=== PATIENT | male | born 1980 | race Caucasian/White ===

== ENCOUNTER 2023-07-16 13:28 | Inpatient (IN) | payer BC, SELFPAY ==
[2023-07-16 08:11] VITALS: BP 116/84
[2023-07-16 08:37] VITALS: BMI 21.8
--- NOTE | 2023-07-16 08:41 | ED.GENMED ---
History of Present Illness
General
Chief Complaint: Abdominal Pain
Source: patient
Exam Limitations: none
Time Seen by Provider: 07/16/23 08:20
Nursing documentation reviewed up to this point in time: agreed with
Travel History
Have you had any contact with someone who has COVID-19?: No
Do you have any symptoms of coronavirus? Fever > 100 degrees, chills, cough, shortness of breath, sore throat, loss of taste or smell, muscle aches, or headache?: No
History of Present Illness
History of Present Illness:
43-year-old male with no medical problems presents with cramps in his lower abdomen starting 2 and half days ago after eating pizza. Patient thought maybe he had just eaten too much. Yesterday the pain continued and kind of localized to the left
lower quadrant. Last evening he developed a temperature of 100.0 and chills and sweats. Patient did not take anything for his fever. He did not sleep well last night because of pain. He felt like he could only lay on his right side because it
would help alleviate some of the pain. He did not try anything for pain. The pain is worse with walking, movement, bumps in the car. He is having some referred pain to his left lower back and into his scrotum but no testicular tenderness. He has
never had a kidney stone or diverticulitis. He has never had a colonoscopy. His last bowel movement was yesterday and was normal without any blood or black stool, no diarrhea. He has had a little bit of nausea, lack of appetite but no vomiting
Past History
Past History
ED Past Medical History: None
ED Past Surgical History: Other (Eye surgery as a child due to trauma)
Social History
Tobacco: Non-smoker
Alcohol: None
Drug: None
Personal:
Living: with family
Employment: Employed
Review of Systems
Review of Systems
Allergies reviewed?: Yes
All Other Systems: Not applicable
Phy Exam
Physical Exam
Physical Exam:
GENERAL: Alert , in no apparent distress
EYE: pupils equal and reactive
NECK: Supple
ENT: o/p clr, mmm.
CARDIAC: Regular rate and rhythm .
LUNGS: Clear breath sounds bilaterally, no acute respiratory distress, no wheezes/rales/rhonchi
ABDOMEN: Soft, moderate lower abdominal tenderness suprapubic and left lower quadrant with subtle rebound and voluntary guarding, no cvat, normal bowel sounds
NEUROLOGICAL: Alert and oriented, no focal neuro deficits
SKIN: Warm and dry, skin intact.
MUSCULOSKELETAL: No edema, well perfused.
PSYCH: Normal and appropriate interaction.
Course
Orders/Labs/Results
Orders:
Orders
07/16/23 08:33
Iohexol [Omnipaque] 50 ml .ROUTE .STK-MED ONE
07/16/23 08:34
0.9% Sodium Chloride 1000 ml [Nss] 1,000 ml IV BOLUS
07/16/23 08:37
Ketorolac [Toradol] 15 mg IV NOW STA
07/16/23 08:38
CT Abd/pel W Iv And Oral Contr Urgent
Comment:
Reason For Exam: llq pain fevre guarding;
Iohexol [Omnipaque] See Protocol PO NOW STA
Ondansetron Injectable [Zofran] 4 mg .ROUTE .STK-MED ONE
Ondansetron Injectable [Zofran] 4 mg IV NOW STA
07/16/23 08:54
Complete Blood Count/No Diff Urgent
Comprehensive Metabolic Panel Urgent
Lactic Acid Urgent
Lipase Urgent
07/16/23 10:32
Urinalysis Reflex To Culture Urgent
Date Specimen was Collected: 07/16/23
Time Specimen was Collected: 10:23
Urine Microscopic Reflex Cult Urgent
07/16/23 12:02
HYDROmorphone [Dilaudid] 1 mg IV NOW STA
07/16/23 12:03
0.9% Sodium Chloride 1000 ml [Nss] 1,000 ml IV BOLUS
07/16/23 12:22
Piperacillin/Tazo 3.375 Gram [Zosyn] 3.375 gram in 50 ml IV NOW
07/16/23 13:00
Admit/Transfer Patient As Directed
Co-Sign Provider:
Level of Care: Inpatient admission
Assign to:: Medical/Surgical
Physician / Group: Jenny
Diagnosis: acute diverticulitis
Reason for Hospitalization: acute diverticulitis
Expected length of stay greater than two midnights?: Yes
ELOS- Estimated Length of Stay in days: 3
I certify the patient meets the requirements for IP care: Yes
Code Status As Directed
Resuscitation Status: Full Code
07/16/23 13:51
0.9% Sodium Chloride 1000 ml [Nss] 1,000 ml IV 125 mls/hr
Acetaminophen [Tylenol] 650 mg PO Q4HPRN PRN
HYDROmorphone [Dilaudid] 1 mg IV Q3HPRN PRN
Ondansetron Injectable [Zofran] 4 mg IV Q6HPRN PRN
07/16/23 13:51
ColoRectal Surgery Consult Routine
Consulting Provider: Darell Kat
Was physician already notified: Yes
Reason for consult: acute diverticulitis
Activity As Directed
Activity Level: With Assistance
Vital Signs As Directed
Frequency: Per unit guidelines
DX Deep Vein Thrombosis Video Routine
07/16/23 Dinner
NPO
Allow oral meds: Yes
Allow clear liquids: Sips of Clears
07/16/23 18:00
Enoxaparin Sodium [Lovenox] 40 mg SC QPM
Piperacillin/Tazo 3.375 Gram [Zosyn] 3.375 gram in 50 ml IV Q6H
07/17/23 06:00
Basic Metabolic Panel IN AM
Complete Blood Count/With Diff IN AM
07/18/23 06:00
Basic Metabolic Panel IN AM
Complete Blood Count/With Diff IN AM
07/19/23 06:00
Basic Metabolic Panel IN AM
Complete Blood Count/With Diff IN AM
07/20/23 06:00
Basic Metabolic Panel IN AM
Complete Blood Count/With Diff IN AM
07/21/23 06:00
Basic Metabolic Panel IN AM
Complete Blood Count/With Diff IN AM
Abnormal Lab Results
07/16/23 07/16/23
08:54 10:32
WBC 15.4 H 10^3/uL
(4.8-10.8)
RBC 4.46 L 10^6/uL
(4.70-6.10)
MCH 31.6 H pg
(27.0-31.0)
MPV 12.1 H fL
(7.4-10.4)
Total Bilirubin 1.5 H mg/dl
(0.2-1.3)
Ur Occult Blood Reflex 1+ A
(Negative)
Urine RBC 3-6 A /HPF
(0-2)
07/16/23 08:54
07/16/23 08:54
Vital Signs
Initial and Last Documented VS:
Initial Vital Signs
Temp Pulse Resp BP Pulse Ox
98.7 F 73 16 116/84 98
07/16/23 08:11 07/16/23 08:11 07/16/23 08:11 07/16/23 08:11 07/16/23 08:11
Last Documented Vital Signs
Temp Pulse Resp BP Pulse Ox
98.2 F 80 18 109/65 96
07/16/23 14:14 07/16/23 14:14 07/16/23 14:14 07/16/23 14:14 07/16/23 14:14
MDM/Problems Addressed
Differential Diagnosis Includes:
diverticulitis, peforation, uti
MDM/Problems Addressed:
43 y/o M with no pmh here with 3 days llq pain, fever 100, wbc 15, tender wiht mild rebound; lactate normal ct shows LLQ divertic with possible microperf; texted dr. eric arora; getting zosyn'; admit hospitalist
*Critical Care Note
Total Time (30-74mins, 75-104mins- exclusive of procedures): Not Applicable
ED Attending Note
-
Portions of this chart may have been created with voice recognition software.� Occasional wrong word or��sound alike� substitutions may have occurred due to the inherent limitations of voice recognition software.
Discharge Plan
Departure
Patient Disposition: Admit
Date of Disposition: 07/16/23
Time of Disposition: 12:36
Admit to: Med/Surg
Presentation/result/management discussed w/ accepting MD/DO: Hospitalist
Patient with high blood pressure during this ER visit?: No
Condition: Fair
Covid-19: Not Applicable
Discharge Problem:
Diverticulitis, microperfor
Interventions
Interventions:
*Risk Screen - Suicide Last Done: 07/16/23 14:00
*General Assessment Last Done: 07/16/23 08:11
*Neglect/Abuse Screening Last Done: 07/16/23 08:11
ED- Fall Risk Assessment Last Done: 07/16/23 09:19
*ED COVID-19 Vaccine History Last Done: 07/16/23 09:19
*Nursing Disposition Last Done: 07/16/23 13:54
NW-Spuynp-Obfjrketjs Assessment Last Done: 07/16/23 09:19
Discharge Date and Time
Discharge Date/Time: 07/16/23 13:55
[2023-07-16] MEDS: TORADOL 15 MG IV (08:47)
[2023-07-16] MEDS: OMNIPAQUE 50 ML PO (08:52)
[2023-07-16] MEDS: NSS 1000 IV ×4 (08:52→23:05)
[2023-07-16] MEDS: ZOFRAN 4 MG IV (08:52)
[2023-07-16 09:10] LABS: Hematocrit 40.5 % (39.0-52.0); Hemoglobin 14.1 g/dL (13.0-18.0); Mean Corp Hgb Conc. 34.8 g/dL (33.0-37.0); Mean Corpuscular Hgb 31.6 pg (27.0-31.0); Mean Corpuscular Volume 90.8 fL (80.0-94.0); Mean Platelet Volume 12.1 fL (7.4-10.4); Platelet Count 208 10^3/uL (130-400); Red Blood Cell Count 4.46 10^6/uL (4.70-6.10); Red Cell Dist. Width 11.7 % (11.5-14.5); White Blood Cell Count 15.4 10^3/uL (4.8-10.8)
[2023-07-16 09:17] LABS: ALT (SGPT) 14 U/L (0-50); AST (SGOT) 27 U/L (17-59); Albumin 4.6 g/dl (3.5-5.0); Alkaline Phosphatase 60 U/L (38-126); Blood Urea Nitrogen 13 mg/dl (9-20); Calcium 9.6 mg/dl (8.4-10.2); Carbon Dioxide 28 mmol/L (22-30); Chloride 101 mmol/L (98-107); Estimated Creatinine Clearance 113 ml/min; Glucose 94 mg/dl (70-99); Lipase 63 U/L (23-300); Potassium 3.8 mmol/L (3.5-5.1); Sodium 136 mmol/L (135-145); Total Bilirubin 1.5 mg/dl (0.2-1.3); Total Protein 7.3 g/dl (6.3-8.2); eGFR > 60.00
[2023-07-16 09:20] LABS: Lactic Acid 0.8 mmol/L (0.7-2.0)
[2023-07-16 10:39] LABS: Urine Albumin Negative (Neg - Trace); Urine Bilirubin Negative (Negative); Urine Character Clear (Clear); Urine Color Yellow; Urine Glucose Negative (Negative); Urine Ketone Negative (Negative); Urine Leukocyte Negative (Negative); Urine Nitrite Negative (Negative); Urine Occult Blood 1+ (Negative); Urine Urobilinogen Negative (Neg - 1+); Urine pH 6.5 (5.0-9.0)
[2023-07-16 10:42] VITALS: BP 111/69
[2023-07-16 11:23] LABS: Urine Amorphous Seen; Urine Mucus Many; Urine Squamous Cell 0-2 /LPF (Few)
[2023-07-16 11:24] LABS: Urine White Cell 0-2 /HPF (0-5)
[2023-07-16] MEDS: DILAUDID 1 MG IV ×2 (12:07→19:51)
[2023-07-16] MEDS: ZOSYN 50 IV ×3 (12:27→23:06)
--- NOTE | 2023-07-16 12:29 | HPS.HSE ---
Family Physician
-
Family Physician: Jasbir Washburn
Chief Complaint
-
Abdominal pain and fever
History of Present Illness
43-year-old male with no past medical history presents with chief complaint of abdominal pain and fever. Patient reports his abdominal pain was in the left lower quadrant started 2 days ago. Yesterday evening the patient began to have fever. He
also had chills. He denies any vomiting or diarrhea. He denies any other acute symptoms other than some low back pain he noted 4 days ago but he attributes this to lifting weights. Denies chest pain, shortness of breath, headache, visual
disturbances, neck stiffness, rash, dysuria.
Medical History
Past Medical History
Past Medical History: Reports None
Past Surgical History: Reports Other (N/A)
Social History
Tobacco: Non-smoker
Alcohol: None
Drug: None
Family History
Family History: Not pertinent
Allergies / Home Medications
Allergies reflects when Allergies were last updated in [employer].
Home Medications with original date entered in [facility] [facility]
Allergy/Medication List:
Allergies
Allergy/AdvReac Type Severity Reaction Status Date / Time
No Known Allergies Allergy Verified 07/16/23 08:10
Home Medications
NONE
Review of Systems
-
History Source: Patient
A 12 point ROS was completed and negative except as noted: Yes
Physical Exam
Vital Signs
Vital Signs
Temp Pulse Resp BP Pulse Ox
98.7 F 72 16 111/69 98
07/16/23 08:11 07/16/23 10:42 07/16/23 10:42 07/16/23 10:42 07/16/23 10:42
Physical Exam
General: Other (.)
Laboratory Results
-
07/16/23 08:54
07/16/23 08:54
Laboratory Results
Lactic Acid 0.8 mmol/L (0.7-2.0) 07/16/23 08:54
Total Bilirubin 1.5 mg/dl (0.2-1.3) H 07/16/23 08:54
AST 27 U/L (17-59) 07/16/23 08:54
ALT 14 U/L (0-50) 07/16/23 08:54
Alkaline Phosphatase 60 U/L (38-126) 07/16/23 08:54
Lipase 63 U/L (23-300) 07/16/23 08:54
Impression/Plan
-
Gen: NAD, AAOx3.
Eyes: EOMI, PERRLA, no scleral icterus.
Neck: supple.
CV: RRR, +S1/S2, no m/r/g.
Resp: CTAB, no rales, wheezes, or rhonchi.
Abd: +BS, soft, LLQ TTP, ND
Skin: No rashes.
Neuro: CN 2-12 intact, non-focal.
Psych: Normal mood and affect.
CT A/P: Diverticulosis of the descending and sigmoid colon with short segment thickening of the wall at the junction of the distal descending and proximal sigmoid colon with accompanying stranding compatible with DIVERTICULITIS. Tiny adjacent bubble
of air which could represent contained perforation. No free peritoneal air, intestinal obstruction or abnormal focal fluid collection. Predominantly stable scattered small/subcentimeter mesenteric lymph nodes.
Acute distal descending and proximal sigmoid diverticulitis with possible contained perforation:
-surgery following
-cont IV Zosyn
-NPO/IVFs/pain control
-serial abdominal exams
-trend leukocytosis
FULL/Lovenox
[2023-07-16 12:37] VITALS: BP 118/73
--- NOTE | 2023-07-16 13:30 | CON.CRS ---
Consultation
-
Date/Time Consultation Requested: 07/16/2023, 1230
Date/Time Consultation Performed: 07/16/2023, 1400
Requesting Provider: Minnie Farias PA-C
Performing Provider: Serjio Kat MD
Reason for Consultation: Diverticulitis
Medical History
-
Chief Complaint: Abdominal pain
History of Present Illness:
43-year-old male with no past medical history presents the emergency department due to abdominal cramping for the past 2 days. Yesterday the pain continued to the left lower quadrant. He developed a temperature of 100.0 with associated chills and
sweats. He was unable to sleep last night because the pain. He has had some nausea and lack of appetite. His last bowel movement was yesterday and normal. He has not had a prior attack of diverticulitis. He has never had a colonoscopy (he has
one scheduled with our GI group in early August).
In the ER his WBC is 15.4. He is afebrile and his vital signs are normal. CT of the abdomen pelvis shows Diverticulosis of the descending and sigmoid colon with short segment thickening of the wall at the junction of the distal descending and
proximal sigmoid colon with accompanying stranding compatible with diverticulitis. Tiny adjacent bubble of air which could represent contained perforation. No free peritoneal air, intestinal obstruction or abnormal focal fluid collection. We have
been consulted for further surgical opinion.
Past Medical History
Past Medical History: None
Past Surgical History: Other (Ophthalmologic surgery)
Social History
Tobacco: Non-Smoker
Alcohol: None
Drug: None
Personal:
Employment: Employed
Family History
Family History: Reviewed & Not Pertinent
Allergies / Home Medications
Allergy/AdvReac Type Severity Reaction Status Date / Time
No Known Allergies Allergy Verified 07/16/23 08:10
Medication Instructions Recorded Confirmed Type
oxycodone-acetaminophen 5 mg-325 1 tab PO Q4HPRN PRN severe pain 01/11/15 Rx
mg tablet #15 tabs
Review of Systems
-
History Source: Patient
All other systems: Negative unless noted
Abdomen/GI: Abdominal Pain, Nausea and Anorexia
A 10 point review of systems was completed, and was negative except as per HPI.
Physical Exam
Vital Signs
Temp 98.7 F 07/16/23 08:11
Pulse 80 07/16/23 12:37
Resp Rate 16 07/16/23 12:37
Blood pressure 118/73 07/16/23 12:37
SaO2 97 07/16/23 12:37
07/15/23 07/16/23 07/17/23
06:59 06:59 06:59
Actual Weight 77.1 kg
Body Mass Index (BMI) 21.8
Lab Results / Allergies
07/16/23 08:54
07/16/23 08:54
WBC 15.4 10^3/uL (4.8-10.8) H 07/16/23 08:54
Hgb 14.1 g/dL (13.0-18.0) 07/16/23 08:54
Hct 40.5 % (39.0-52.0) 07/16/23 08:54
Plt Count 208 10^3/uL (130-400) 07/16/23 08:54
Allergy/AdvReac Type Severity Reaction Status Date / Time
No Known Allergies Allergy Verified 07/16/23 08:10
Physical Exam
General: Well Developed, Well Nourished and No Apparent Distress
GI: Soft, Non Distended and Tender (Left lower quadrant)
Skin: Warm and Dry
Neuro: AO x 3
Psych: Calm
Data Reviewed
-
CT Scan: Image Personally Visualized and interpreted, Report Reviewed by me and Discussed with Patient
Labs: Labs Reviewed by me, Discussed with Physician and Discussed with Patient
Old Records: Reviewed
Assessment / Plan
-
Assessment: 43-year-old male with no past medical history presents with fever at home and left lower quadrant abdominal pain by 2 days, CT consistent with uncomplicated distal descending and proximal sigmoid colon diverticulitis
Plan: There is no indication for urgent surgery at this time. Recommend n.p.o. today. Continue IV antibiotics and fluids. Continue to trend labs and vital signs. If he worsens he will require a colectomy with possible colostomy creation. Will
need eventual colonoscopy as an outpatient. Discussed the above with the patient. Will follow.
[2023-07-16 14:14] VITALS: BP 109/65
[2023-07-16 14:15] VITALS: BMI 22.1
[2023-07-16] MEDS: TYLENOL 650 MG PO (15:00)
[2023-07-16] MEDS: FLUSH (NSS) 1 FLUSH IV (19:52)
[2023-07-16 23:30] VITALS: BP 103/50
[2023-07-17] MEDS: TYLENOL 650 MG PO (01:44)
[2023-07-17] MEDS: ZOSYN 50 IV ×4 (05:28→23:23)
[2023-07-17 06:18] LABS: % Basophils 0.3 % (0-2); % Immature Granulocytes 0.3 % (0-0.5); % Monocytes 9.7 % (1.7-9.3); % Neutrophils 72.7 % (42.2-75.2); Absolute Eosinophils 0.1 10^3/uL (0-0.7); Absolute Lymphocytes 2.2 10^3/uL (1.2-3.4); Absolute Monocytes 1.3 10^3/uL (0.1-0.6); Absolute Neutrophils 9.8 10^3/uL (1.4-6.5); Hematocrit 35.5 % (39.0-52.0); Hemoglobin 12.2 g/dL (13.0-18.0); Mean Corp Hgb Conc. 34.4 g/dL (33.0-37.0); Mean Corpuscular Hgb 31.5 pg (27.0-31.0); Mean Corpuscular Volume 91.7 fL (80.0-94.0); Mean Platelet Volume 12.2 fL (7.4-10.4); Nucleated Red Blood Cells % 0 % (-); Platelet Count 176 10^3/uL (130-400); Red Blood Cell Count 3.87 10^6/uL (4.70-6.10); Red Cell Dist. Width 11.7 % (11.5-14.5); White Blood Cell Count 13.5 10^3/uL (4.8-10.8)
[2023-07-17] MEDS: NSS 1000 IV ×3 (06:44→23:23)
[2023-07-17 06:51] LABS: Blood Urea Nitrogen 9 mg/dl (9-20); Calcium 8.8 mg/dl (8.4-10.2); Carbon Dioxide 25 mmol/L (22-30); Chloride 105 mmol/L (98-107); Estimated Creatinine Clearance > 125 ml/min; Glucose 80 mg/dl (70-99); Potassium 3.9 mmol/L (3.5-5.1); Sodium 138 mmol/L (135-145); eGFR > 60.00
[2023-07-17 07:00] VITALS: BP 122/98
[2023-07-17] MEDS: DILAUDID 1 MG IV ×3 (10:02→20:41)
--- NOTE | 2023-07-17 10:16 | W.PN.HOSP.TC ---
Today's Communication/Plan
-
see bold
Assessment / Plan
Assessment / Plan
Gen: NAD, AAOx3.
Eyes: EOMI, PERRLA, no scleral icterus.
Neck: supple.
CV: remains RRR, +S1/S2, no m/r/g.
Resp: remains CTAB, no rales, wheezes, or rhonchi.
Abd: remains +BS, soft, LLQ TTP, ND
Skin: No rashes.
Neuro: CN 2-12 intact, non-focal.
Psych: Normal mood and affect.
CT A/P: Diverticulosis of the descending and sigmoid colon with short segment thickening of the wall at the junction of the�distal descending and proximal sigmoid colon�with accompanying stranding compatible with�DIVERTICULITIS. Tiny adjacent bubble
of air which could represent contained perforation.�No free peritoneal air, intestinal obstruction or abnormal focal fluid collection. Predominantly stable scattered small/subcentimeter mesenteric lymph nodes.
Acute distal descending and proximal sigmoid diverticulitis with possible contained perforation:
-surgery following
-cont IV Zosyn
-NPO/IVFs/pain control
-serial abdominal exams
-Leukocytosis improving
-if abd pain has not improved by tomorrow will repeat CT A/P
FULL/Lovenox
Anticipated Discharge: > 48 hours
Subjective/Interval History
-
Date of Service: July 17, 2023
LLQ abdominal pain has not improved.
Objective Data
-
Labs:
Laboratory Results
07/17/23
05:29
WBC 13.5 H
Hgb 12.2 L
Hct 35.5 L
Plt Count 176
Sodium 138
Potassium 3.9
Chloride 105
Carbon Dioxide 25
BUN 9
Creatinine 0.8
Glucose 80
Calcium 8.8
Vital Signs:
Vital Signs
Temp Pulse Resp BP Pulse Ox
98.1 F 79 16 122/98 99
07/17/23 07:00 07/17/23 07:00 07/17/23 07:00 07/17/23 07:00 07/17/23 07:00
I&O
07/16/23 07/17/23 07/18/23
06:59 06:59 06:59
Intake Total 1475 / 1475
Balance 1475 / 1475
--- NOTE | 2023-07-17 11:43 | W.PN.GS2 ---
Addendum entered and electronically signed by Kendall Watson MD 07/17/23 12:00:
I saw and examined the patient.
The Grocery Caddy's note was reviewed and I agree with the note.
Comment: Improving. Still with mod-sev ttp to LLQ. Would remain on CLD today and cont IV abx. Trend WBC/fever.
Original Note:
Today's Communication / Plan
-
Follow on IV ABX/CLD
Assessment / Plan
-
43 yo male presenting with fevers and distal descending and proximal sigmoid diverticulitis without abscess.
Febrile overnight, VSS
WBC trending down
--There is no indication for urgent surgery at this time
--Continue clears, but hold diet advancement until pain improved
--Continue IVF/IV ABX
--Tylenol, Toradol, Dilaudid for pain
--Continue to trend labs, exams and vital signs.� If he worsens he will require a colectomy with possible colostomy creation.�
--Will need eventual colonoscopy as an outpatient.��
Subjective Data
-
Date of Service: July 17, 2023
patient seen and examined at bedside with Dr. Watson. Denies n/v. LLQ pain persists. Uncomfortable appearing.
Objective Data
-
Intake and Output
07/16/23 07/17/23 07/18/23
06:59 06:59 06:59
Intake Total 1475 / 1475
Balance 1475 / 1475
Intake:
IV fluids (Total) 1375 / 1375
IV piggybacks 100 / 100
Other:
Number of approximated LARGE 3
amounts of urine
Vital Signs
Temp Pulse Resp BP Pulse Ox
97.6 F 79 16 122/98 99
07/17/23 11:11 07/17/23 07:00 07/17/23 07:00 07/17/23 07:00 07/17/23 07:00
Lab Results
07/17/23 05:29
07/17/23 05:29
Calcium 8.8 mg/dl (8.4-10.2) 07/17/23 05:29
Total Bilirubin 1.5 mg/dl (0.2-1.3) H 07/16/23 08:54
AST 27 U/L (17-59) 07/16/23 08:54
ALT 14 U/L (0-50) 07/16/23 08:54
Alkaline Phosphatase 60 U/L (38-126) 07/16/23 08:54
Total Protein 7.3 g/dl (6.3-8.2) 07/16/23 08:54
Albumin 4.6 g/dl (3.5-5.0) 07/16/23 08:54
Physical Exam
-
NAD, Ox3
ABD soft, LLQ exquisitely tender, some referred pain to the left with palpation on the right, ND
--- NOTE | 2023-07-17 12:14 | CM ---
IA completed with pt at bedside.
Pt is a 43yr old male admitted for acute diverticulitis
Pt lives in a private multi level home with his and daughter.
Pt is indep at baseline, working.
No DME/VN/SNF
PCP; Jasbir Washburn
Pharm; [facility] [address]
No needs anticipated
[2023-07-17] MEDS: TORADOL 10 MG IV (13:32)
[2023-07-17 15:59] VITALS: BP 122/74
[2023-07-17 23:33] VITALS: BP 131/63
[2023-07-18] MEDS: ZOSYN 50 IV ×2 (05:00→11:33)
[2023-07-18] MEDS: DILAUDID 1 MG IV (05:06)
[2023-07-18 06:44] LABS: % Basophils 0.4 % (0-2); % Eosinophils 3.7 % (0-6); % Immature Granulocytes 0.3 % (0-0.5); % Lymphocytes 20.1 % (20.5-51.1); % Monocytes 10.1 % (1.7-9.3); % Neutrophils 65.4 % (42.2-75.2); Absolute Eosinophils 0.3 10^3/uL (0-0.7); Absolute Lymphocytes 1.6 10^3/uL (1.2-3.4); Absolute Monocytes 0.8 10^3/uL (0.1-0.6); Absolute Neutrophils 5.2 10^3/uL (1.4-6.5); Hematocrit 31.8 % (39.0-52.0); Hemoglobin 11.1 g/dL (13.0-18.0); Mean Corp Hgb Conc. 34.9 g/dL (33.0-37.0); Mean Corpuscular Hgb 31.8 pg (27.0-31.0); Mean Corpuscular Volume 91.1 fL (80.0-94.0); Mean Platelet Volume 11.6 fL (7.4-10.4); Nucleated Red Blood Cells % 0 % (-); Platelet Count 168 10^3/uL (130-400); Red Blood Cell Count 3.49 10^6/uL (4.70-6.10); Red Cell Dist. Width 11.7 % (11.5-14.5); White Blood Cell Count 7.9 10^3/uL (4.8-10.8)
[2023-07-18 07:01] LABS: Blood Urea Nitrogen 6 mg/dl (9-20); Calcium 8.8 mg/dl (8.4-10.2); Carbon Dioxide 27 mmol/L (22-30); Chloride 104 mmol/L (98-107); Estimated Creatinine Clearance 115 ml/min; Glucose 89 mg/dl (70-99); Potassium 3.9 mmol/L (3.5-5.1); Sodium 138 mmol/L (135-145); eGFR > 60.00
[2023-07-18 07:47] VITALS: BP 116/72
[2023-07-18] MEDS: NSS 1000 IV (08:37)
--- NOTE | 2023-07-18 10:17 | W.PN.HOSP.TC ---
Today's Communication/Plan
-
see bold
Assessment / Plan
Assessment / Plan
Gen: NAD, AAOx3.
Eyes: EOMI, PERRLA, no scleral icterus.
Neck: supple.
CV: remains RRR, +S1/S2, no m/r/g.
Resp: remains CTAB, no rales, wheezes, or rhonchi.
Abd: remains +BS, soft, LLQ TTP, ND
Skin: No rashes.
Neuro: CN 2-12 intact, non-focal.
Psych: Normal mood and affect.
CT A/P: Diverticulosis of the descending and sigmoid colon with short segment thickening of the wall at the junction of the�distal descending and proximal sigmoid colon�with accompanying stranding compatible with�DIVERTICULITIS. Tiny adjacent bubble
of air which could represent contained perforation.�No free peritoneal air, intestinal obstruction or abnormal focal fluid collection. Predominantly stable scattered small/subcentimeter mesenteric lymph nodes.
Acute distal descending and proximal sigmoid diverticulitis with possible contained perforation:
-surgery following
-cont IV Zosyn
-Leukocytosis resolved
-case discussed with Dr. Watson. Advanced to low residue diet. If he tolerates a low residue diet for lunch he can be discharged on Augmentin. With family present I specifically explained that should he have worsening abdominal pain, fever, or any
other concerning symptoms he needs to come back to the ER immediately. He verbally acknowledged understanding of this.
FULL/Lovenox
Total time spent on d/c = 33 min. This included today's physical exam, progress note, review of laboratory and diagnostic data, preparation of discharge documents and prescriptions, and discussions about the pt's hospital course and discharge plan
with the patient and other certified medical coder involved in the patient's care.
Anticipated Discharge: Today
Subjective/Interval History
-
Date of Service: July 18, 2023
Patient reports abdominal pain is overall improving.
Objective Data
-
Labs:
Laboratory Results
07/18/23
06:17
WBC 7.9
Hgb 11.1 L
Hct 31.8 L
Plt Count 168
Sodium 138
Potassium 3.9
Chloride 104
Carbon Dioxide 27
BUN 6 L
Creatinine 0.9
Glucose 89
Calcium 8.8
Vital Signs:
Vital Signs
Temp Pulse Resp BP Pulse Ox
98.4 F 57 16 116/72 97
07/18/23 07:47 07/18/23 07:47 07/18/23 07:47 07/18/23 07:47 07/18/23 07:47
I&O
07/17/23 07/18/23 07/19/23
06:59 06:59 06:59
Intake Total 1475 / 1475 880 / 880
Balance 1475 / 1475 880 / 880
--- NOTE | 2023-07-18 11:16 | W.PN.GS2 ---
Addendum entered and electronically signed by Kendall Watson MD 07/18/23 12:22:
I saw and examined the patient.
The Remote Sensing Scientist's note was reviewed and I agree with the note.
Comment: C/o pain that has not improved. No further fevers, WBC normalized. Discussed staying an additional 24 hrs for IV abx, pt prefers DC home with PO abx. Advised of the risks of recurrent flare and provided guidance regarding what to watch for
at home that should prompt return to the hospital (worsening pain/vomiting/fever). F/U with CRS outpt to discuss options/future mgmt. He has a c-scope scheduled already (age 43 screening scope)
Original Note:
Today's Communication / Plan
-
Advance diet
Continue abx
Assessment / Plan
-
43 yo male presenting with fevers and distal descending and proximal sigmoid diverticulitis without abscess.
No further fevers, VSS
Leukocytosis resolved
--There is no indication for urgent surgery at this time
--Advanced to LRD
--Continue IVF/IV ABX
--Tylenol, Toradol, Dilaudid for pain
--Will need eventual colonoscopy as an outpatient
Patient eager for discharge, ideally would continue IV abx until pain more improved. Will follow pain pattern with diet advancement. Tentatively ready for d/c this evening vs tomorrow.
Subjective Data
-
Date of Service: July 18, 2023
Patient seen and examined at bedside with Dr. Watson. Denies n/v. Tolerating clears. Pain present but improving slowly.
Objective Data
-
Intake and Output
07/17/23 07/18/23 07/19/23
06:59 06:59 06:59
Intake Total 1475 / 1475 880 / 880
Balance 1475 / 1475 880 / 880
Intake:
Oral fluids 880 / 880
IV fluids (Total) 1375 / 1375
IV piggybacks 100 / 100
Other:
Number of approximated MODERATE 3
amounts of urine
Number of approximated LARGE 3
amounts of urine
Vital Signs
Temp Pulse Resp BP Pulse Ox
98.4 F 57 16 116/72 97
07/18/23 07:47 07/18/23 07:47 07/18/23 07:47 07/18/23 07:47 07/18/23 07:47
Lab Results
07/18/23 06:17
07/18/23 06:17
Calcium 8.8 mg/dl (8.4-10.2) 07/18/23 06:17
Total Bilirubin 1.5 mg/dl (0.2-1.3) H 07/16/23 08:54
AST 27 U/L (17-59) 07/16/23 08:54
ALT 14 U/L (0-50) 07/16/23 08:54
Alkaline Phosphatase 60 U/L (38-126) 07/16/23 08:54
Total Protein 7.3 g/dl (6.3-8.2) 07/16/23 08:54
Albumin 4.6 g/dl (3.5-5.0) 07/16/23 08:54
Physical Exam
-
NAD, Ox3
ABD soft, LLQ tender, ND
--- NOTE | 2023-07-18 13:28 | CM ---
Pt for dc. No resources/transport needs were identified.
--- NOTE | 2023-07-26 17:33 | W.DCSUMMARY ---
Discharge Summary
Discharge Data
Date of Admission: 07/16/23
Date of Discharge: 07/18/23
-
Pending Results: No
Hospital Course
Primary diagnoses:
Acute distal descending and proximal sigmoid diverticulitis with possible contained perforation
Secondary diagnoses:
None
Consultants:
General surgery
Imaging:
CT A/P: Diverticulosis of the descending and sigmoid colon with short segment thickening of the wall at the junction of the�distal descending and proximal sigmoid colon�with accompanying stranding compatible with�DIVERTICULITIS. Tiny adjacent bubble
of air which could represent contained perforation.�No free peritoneal air, intestinal obstruction or abnormal focal fluid collection. Predominantly stable scattered small/subcentimeter mesenteric lymph nodes.
Hospital course: 43-year-old male presented with chief complaints of abdominal pain and fever as outlined in the H&P done on admission. Imaging above and notable for acute distal descending and proximal sigmoid diverticulitis with possible
contained perforation. Patient was made n.p.o. and placed on IV Zosyn as well as IV fluids. He had a leukocytosis that was present on admission and resolved prior to discharge. He was seen in consultation by general surgery. His diet was
advanced to low residue diet which he tolerated. He was discharged in medically stable condition on Augmentin.
Discharge Plan
-
Patient Disposition: Home (Routine Discharge)
Discharge Diagnosis/Procedures: Acute diverticulitis
Condition: Good
Diet: Low Residue
Activity: No strenuous activity
Driving Restrictions: As prior to admission
Referrals:
Jasbir Washburn DO [Family Provider] - in less than 1 week
Prescriptions:
New
amoxicillin-pot clavulanate 875-125 mg tablet
1 tab PO BID Qty: 20 0RF
Continued
oxycodone-acetaminophen 5 MG/325 MG tablet
1 tab PO Q4HPRN PRN (Reason: severe pain) Qty: 15 0RF
Rx Instructions:
NO RECORD OF THIS MED FILLED IN PAST 12 MO PER [facility].
Discharge Orders:
Discharge Patient (As Directed); Ordered 07/18/23
Ordered By: Billy Alvarado
Discharge Date and Time
Discharge Date/Time: 07/18/23 14:35
== END 2023-07-18 14:35 | disposition home or self-care (01) | DRG 392 ==
LOC: 4 EAST ACU 13:28
PROVIDERS: Physician Assistant; ADMITTING PHYSICIAN Internal Medicine; CONSULT PHYSICIAN Surgery; EMERGENCY PHYSICIAN Student in an Organized Health Care Education/Training Program; FAMILY PHYSICIAN Family Medicine
DX: K57.32 Diverticulitis of large intestine without perforation or abscess without bleeding (principal)
CPT/HCPCS: 74177; 80048; 80053; 81003; 81015; 83605; 83690; 85025; 85027; 96361; 96365; 96375; 99285; Q9967

== ENCOUNTER → 2024-04-28 14:33 | Outpatient (REF) | payer SELFPAY | LOC: RAD 14:33 | PROVIDERS: ATTENDING PHYSICIAN Family Medicine | DX: Z13.6 Encounter for screening for cardiovascular disorders (principal) | CPT/HCPCS: 75571 ==

== ENCOUNTER → 2024-12-04 14:49 | Outpatient (REF) | payer BC, SELFPAY | LOC: HWRAD 14:49 | PROVIDERS: ATTENDING PHYSICIAN Family Medicine | DX: E06.3 Autoimmune thyroiditis (principal) | CPT/HCPCS: 76536 ==

== ENCOUNTER 2025-05-14 20:14 | Emergency (ER) | payer BC, SELFPAY ==
[2025-05-14 20:18] VITALS: BP 143/86
[2025-05-14 20:59] LABS: Urine Character Clear (Clear)
[2025-05-14 21:04] LABS: Hematocrit 42.1 % (39.0-52.0); Hemoglobin 14.3 g/dL (13.0-18.0); Mean Corp Hgb Conc. 34.0 g/dL (33.0-37.0); Mean Corpuscular Volume 90.9 fL (80.0-94.0); Nucleated Red Blood Cells % 0 % (-); Platelet Count 235 10^3/uL (130-400); Red Cell Dist. Width 11.8 % (11.5-14.5)
[2025-05-14 21:18] LABS: ALT (SGPT) 12 U/L (0-50); AST (SGOT) 22 U/L (17-59); Albumin 4.7 g/dl (3.5-5.0); Alkaline Phosphatase 58 U/L (38-126); Blood Urea Nitrogen 13 mg/dl (9-20); Calcium 10.1 mg/dl (8.4-10.2); Carbon Dioxide 33 mmol/L (22-30); Chloride 95 mmol/L (98-107); Glucose 98 mg/dl (70-99); Lipase 51 U/L (23-300); Potassium 4.1 mmol/L (3.5-5.1); Sodium 134 mmol/L (135-145); Total Protein 7.8 g/dl (6.3-8.2); eGFR > 60.00
[2025-05-14 21:29] LABS: Urine Red Blood Cell 0-2 /HPF (0-2); Urine Squamous Cell 0-2 /LPF (Few); Urine White Cell 0-2 /HPF (0-5)
[2025-05-14 22:22] VITALS: BP 127/69; BMI 20.1
--- NOTE | 2025-05-14 22:51 | ED.GENMED ---
History of Present Illness
General
Chief Complaint: Abdominal Pain
Source: patient
Exam Limitations: none
Time Seen by Provider: 05/14/25 22:50
Nursing documentation reviewed up to this point in time: agreed with
History of Present Illness
History of Present Illness:
45 yo male with hx diverticulitis presents with abdominal pain and fever 100.3 earlier today, took Tylenol 7 p.m. The symptoms began two mornings ago, progressively worsening. He describes similar symptoms during a previous episode in July 2022,
which resulted in a slight colonic perforation. A follow-up colonoscopy confirmed diverticulosis and a benign polyp was removed. On this occasion, the patient reports seeing a doctor from Dr. Maddison arenas earlier today. The patient denies
shortness of breath, chest pain. Had normal BM earlier today. The current pain is rated as 8/10 on the pain scale.
Past History
Past History
ED Past Medical History: Other (diverticulitis)
ED Past Surgical History: None and Other (Eye surgery as a child due to trauma)
Social History
Tobacco: Non-smoker
Alcohol: Occasional
Drug: None
Personal:
Living: with family
Employment: Employed
Review of Systems
Review of Systems
Allergies reviewed?: Yes
All Other Systems: ROS reviewed and negative except as documented in HPI and ROS
Phy Exam
Physical Exam
Physical Exam:
GENERAL: No acute distress. A&Ox3.
CONSTITUTIONAL: Afebrile.
EYES: clear, conjunctivae normal
ENMT: moist mucus membranes, Pharynx nl
RESPIRATORY: Regular respirations, nonlabored, lungs clear.
CARDIOVASCULAR: Regular rate and rhythm, no murmurs, no rubs.
GI: Soft, left lower quadrant tenderness, normal BS
MUSCULOSKELETAL: Moves with ease. Well perfused.
SKIN: Warm, dry, pink
PSYCH: Normal mood and affect. Well kept, interactive and appropriate
NEUROLOGIC: Awake, alert and oriented. No focal neurological deficits
Sepsis
Sepsis Screening
Sepsis Assessment: Sepsis Ruled Out
Sepsis Screen
Sepsis Screen: Sepsis Ruled Out
Date: 05/15/25
Time: 00:36
Course
Orders/Labs/Results
Orders:
Orders
05/14/25 20:21
IV Insert/Care/Rem.- Treatment PRN
05/14/25 20:44
Complete Blood Count/With Diff Urgent
Comprehensive Metabolic Panel Urgent
Lactic Acid Urgent
Lipase Urgent
Urinalysis Reflex To Culture Urgent
Date Specimen was Collected: 05/14/25
Time Specimen was Collected: 20:21
Urine Microscopic Reflex Cult Urgent
05/14/25 22:50
CT Abd/Pel (IV only)-DH only Urgent
Comment:
Reason For Exam: LLQ pain hx diverticulits
Abnormal Lab Results
05/14/25
20:44
WBC 15.2 H 10^3/uL
(4.8-10.8)
RBC 4.63 L 10^6/uL
(4.70-6.10)
MPV 11.6 H fL
(7.4-10.4)
Abs Immat Gran (auto) 0.1 H 10^3/uL
(0-0.05)
Absolute Neuts (auto) 11.5 H 10^3/uL
(1.4-6.5)
Absolute Monos (auto) 1.3 H 10^3/uL
(0.1-0.6)
Neutrophils % 75.8 H %
(42.2-75.2)
Lymphocytes % 13.9 L %
(20.5-51.1)
Sodium 134 L mmol/L
(135-145)
Chloride 95 L mmol/L
(98-107)
Carbon Dioxide 33 H mmol/L
(22-30)
Total Bilirubin 1.4 H mg/dl
(0.2-1.3)
Ur Occult Blood Reflex 1+ A
(Negative)
Urine Albumin (Reflex) 1+ A
(Neg - Trace)
05/14/25 20:44
05/14/25 20:44
Vital Signs
Initial and Last Documented VS:
Initial Vital Signs
Temp Pulse Resp BP Pulse Ox
98 F 73 16 143/86 98
05/14/25 20:18 05/14/25 20:18 05/14/25 20:18 05/14/25 20:18 05/14/25 20:18
Last Documented Vital Signs
Temp Pulse Resp BP Pulse Ox
98 F 63 13 118/69 96
05/14/25 20:18 05/15/25 00:00 05/15/25 00:00 05/15/25 00:00 05/15/25 00:00
MDM/Problems Addressed
Differential Diagnosis Includes:
diverticulitis, colitis,
MDM/Problems Addressed:
45 yo male with hx diverticulitis presents with abdominal pain and fever 100.3 earlier today, took Tylenol 7 p.m. The symptoms began two mornings ago, progressively worsening. He describes similar symptoms during a previous episode in July 2022,
which resulted in a slight colonic perforation. A follow-up colonoscopy confirmed diverticulosis and a benign polyp was removed. On this occasion, the patient reports seeing a doctor from Dr. Washburn group earlier today. The patient denies
shortness of breath, chest pain. Had normal BM earlier today. The current pain is rated as 8/10 on the pain scale.
Afebrile, NAD
Pain 7/10 Declines when pain med offered.
CBC: WBC 15.2
CMP with no clinically significant abnormality
UA negative
11:[address] abd/pelvis w IV contrast radiology report read: Uncomplicated sigmoid diverticulitis.
Pt was started on Augmenting today. He will follow up with his Colorectal doctor
*Pulse Oximetry
SaO2: 95
Oxygen Mode of Delivery: Room air
Patient hypoxic: no
*Critical Care Note
Total Time (30-74mins, 75-104mins- exclusive of procedures): Not Applicable
ED Attending Note
-
Portions of this chart may have been created with voice recognition software.� Occasional wrong word or��sound alike� substitutions may have occurred due to the inherent limitations of voice recognition software.
Discharge Plan
Departure
Patient Disposition: Home (Routine Discharge)
Date of Disposition: 05/15/25
Time of Disposition: 00:20
Patient with high blood pressure during this ER visit?: No
Condition: Fair
Discharge Problem:
Diverticulitis
Instructions: Clear Liquid Diet, Diverticulitis (DC)
Prescriptions:
No Action
oxycodone-acetaminophen 5 MG/325 MG tablet
1 tab PO Q4HPRN PRN (Reason: severe pain) Qty: 15 0RF
Rx Instructions:
NO RECORD OF THIS MED FILLED IN PAST 12 MO PER [facility]AP[facility].
amoxicillin-pot clavulanate 875-125 mg tablet
1 tab PO BID Qty: 20 0RF
Referrals:
Jasbir Washburn DO [Family Provider, Family Practice]
Malik Mcdowell MD [Non-Admitting Privileges] - Call in 1-3 days for appt
Activity Restrictions/Additional Instructions:
As we discussed, your CAT scan shows you have uncomplicated sigmoid diverticulitis.
Clear liquid diet for 2 days, then advance to bland then regular
Continue your Augmentin as ordered
Follow-up with your colorectal doctor
Return here immediately for fever above 100.5 not relieved with Tylenol or ibuprofen, vomiting, increasing abdominal pain, rectal bleeding or feeling sicker in any way.
Interventions
Interventions:
*Risk Screen - Suicide Last Done: 05/14/25 20:18
*General Assessment Last Done: 05/14/25 22:24
*Neglect/Abuse Screening Last Done: 05/14/25 20:18
*ED COVID-19 Vaccine History Last Done: 05/14/25 22:24
*ED Influenza Vaccine History Last Done: 05/14/25 22:24
[facility] Fall Risk Assessment Tool Last Done: 05/14/25 22:23
QC-Afevmo-Awdnzajzoy Assessment Last Done: 05/14/25 22:25
Discharge Date and Time
Print Language: [place]
[2025-05-14 23:13] VITALS: BP 128/77
[2025-05-15] VITALS: BP 118/69
== END 2025-05-15 00:52 | disposition home or self-care (01) ==
LOC: EMR 20:14
PROVIDERS: Emergency Medicine; EMERGENCY PHYSICIAN Emergency Medicine; FAMILY PHYSICIAN Family Medicine
DX: K57.32 Diverticulitis of large intestine without perforation or abscess without bleeding (principal); K63.5 Polyp of colon
CPT/HCPCS: 99284; 74177; 80053; 81003; 81015; 83605; 83690; 85025; Q9967